=== PATIENT | male | born 1955 | race Caucasian/White ===

== ENCOUNTER → 2021-01-19 11:54 | Outpatient (REF) | payer MEDICARE, SELFPAY | LOC: ANHLAB 11:54 | PROVIDERS: PCP Family Medicine; Visit Provider Nurse Practitioner | DX: D49.2 Neoplasm of unspecified behavior of bone, soft tissue, and skin (principal); L85.9 Epidermal thickening, unspecified; L57.0 Actinic keratosis | CPT/HCPCS: 88305 ==

== ENCOUNTER → 2022-01-11 11:41 | Outpatient (REF) | payer MEDICARE, SELFPAY | LOC: ANHLAB 11:41 | PROVIDERS: PCP Family Medicine; Visit Provider Nurse Practitioner | DX: L57.0 Actinic keratosis (principal); L81.4 Other melanin hyperpigmentation | CPT/HCPCS: 88305 ==

== ENCOUNTER → 2022-02-28 11:07 | Outpatient (REF) | payer MEDICARE, SELFPAY | LOC: ANHLAB 11:07 | PROVIDERS: PCP Family Medicine; Visit Provider Nurse Practitioner | DX: C44.329 Squamous cell carcinoma of skin of other parts of face (principal) | CPT/HCPCS: 88305; 88331 ==

== ENCOUNTER 2023-07-25 00:54 | Day surgery (SDC) | payer MEDICARE, SELFPAY ==
[2023-07-12 14:31] VITALS: BMI 21.4
[2023-07-25 10:00] VITALS: BP 130/77; PULSE 90; RESP 18; TEMP 36.3; O2SAT 100; BMI 21.1
[2023-07-25] MEDS: LACTATED RINGERS 1,000 ML 150 ML IV CONT (10:23)
--- NOTE | 2023-07-25 10:32 | PM.HPGS ---
History of Present Illness History of Present Illness Consent: Risks, benefits, and alternatives have been discussed and questions answered. Patient agrees to proceed with procedure. Chief complaint: hx of colon polyps Narrative: Chun Benson is a 68 year old male presents for screening colonoscopy. Patient's current weight appetite and bowel movements are normal. Patient denies abdominal pain. He has had no bleeding. Family history is significant both mother and father and several additional relatives have all had colon cancer. Patient himself was found to have adenomatous colon polyp at the time colonoscopy in 2017. Patient presents today for surveillance screening colonoscopy. Review of Systems Review of Systems: Review of systems noncontributory. [facility] Past Medical History Medical History Benign prostatic hyperplasia with weak urinary stream Erectile dysfunction Mixed hyperlipidemia Personal history of squamous cell carcinoma of skin Surgical History Surgical History History of vasectomy Family History Family History Father Hypertension Carcinoma of colon Family history of malignant neoplasm of urinary bladder Mother Carcinoma of colon Social History Social History (Updated 05/08/23 @ 15:18 by Kate Davis [facility]) Smoking status: Former smoker Smokeless tobacco user: chewing tobacco Second hand tobacco smoke exposure: No Smoking end date: 09/25/88 Alcohol intake: current Substance use: never Substance use type: does not use Lack of Transportation: No Lack of Food: Never True Current Housing: I Have Housing Concerned About Future Housing: No Difficulty Paying Gas/Electric Bills: No Difficulty Paying for Meds: No Currently Unemployed: No Education: Master's Degree or Higher Difficulty w/ Childcare or Family Care: No Living arrangements: with family Gender identity (if verbalized by the patient): Male Sexual Orientation (if Verbalized by the Patient): Straight or Heterosexual Spiritual care concerns: No Agree to blood products: Yes Meds Home Medications and Allergies Home Medications Medication Instructions Recorded Confirmed Type tadalafil 20 mg tablet 20 mg PO DAILY sexual activity #30 10/22/21 07/25/23 Rx tabs Allergies Allergy/AdvReac Type Severity Reaction Status Date / Time erythromycin base Allergy Unknown Unknown Verified 07/25/23 10:10 NSAIDS (Non-Steroidal Allergy Unknown stomach Verified 07/25/23 10:10 Anti-Inflamma problems Vital Signs Vital Signs - 24 hr 07/25/23 10:00 Temperature 97.4 F L Pulse Rate 90 Respiratory Rate 18 Blood Pressure 130/77 Pulse Oximetry 100 Oxygen Delivery Room Air Exam Narrative: Physical exam reveals patient to be alert. Vital signs stable. HEENT exam is unremarkable. Patient is anicteric. Lungs are clear to auscultation and percussion. Heart is without murmur or extra sounds. Abdomen bowel sounds are present soft nontender with no organomegaly. Digital external rectal exam normal. Assessment and Plan Assessment and plan (1) H/O adenomatous polyp of colon: Code(s): Z86.010 - Personal history of colonic polyps Status: Acute Assessment and Plan: Patient found to have adenomatous colon polyp in the past. Most recently 2017 colonoscopy. Plan for surveillance exam at least every 5 years. (2) Family hx of colon cancer: Code(s): Z80.0 - Family history of malignant neoplasm of digestive organs Status: Acute Assessment and Plan: Both mother and father and several additional 5 extended family members have had colon cancer. Plan for surveillance colonoscopy at least every 5 years.
--- NOTE | 2023-07-25 10:51 | WPDANESEPPF ---
Anes - Initial Pre Proc Eval Procedure: Operation Date: 07/25/23 11:30 Proposed Procedures p Colonoscopy - Wilfrido Tolentino MD Date/Time: 07/25/23 10:51 Surgeon: Wilfrido Tolentino MD Pre Op Diagnosis: hx of colon polyps Patient Data Age: 68 Gender: M Height: 1.78 m Weight: 66.8 kg Last Vital Signs Temp 97.4 F L 07/25/23 10:00 Pulse 90 07/25/23 10:00 Resp 18 07/25/23 10:00 BP 130/77 07/25/23 10:00 Pulse Ox 100 07/25/23 10:00 O2 Del Method Room Air 07/25/23 10:00 Allergies Allergy/AdvReac Type Severity Reaction Status Date / Time erythromycin base Allergy Unknown Unknown Verified 07/25/23 10:10 NSAIDS (Non-Steroidal Allergy Unknown stomach Verified 07/25/23 10:10 Anti-Inflamma problems Home Medications Medication Instructions Recorded Confirmed Type tadalafil 20 mg tablet 20 mg PO DAILY sexual activity #30 10/22/21 07/25/23 Rx tabs Patient hx anesthesia problems: none Family hx anesthesia problems: none Results Review: All pre-operative results and documents have been reviewed as part of the pre-operative evaluation. [facility] Past Medical History Medical History Benign prostatic hyperplasia with weak urinary stream Erectile dysfunction Mixed hyperlipidemia Personal history of squamous cell carcinoma of skin Surgical History Surgical History History of vasectomy Family History Family History Father Hypertension Carcinoma of colon Family history of malignant neoplasm of urinary bladder Mother Carcinoma of colon Social History Social History (Updated 05/08/23 @ 15:18 by Kate Davis [facility]) Smoking status: Former smoker Smokeless tobacco user: chewing tobacco Second hand tobacco smoke exposure: No Smoking end date: 09/25/88 Alcohol intake: current Substance use: never Substance use type: does not use Lack of Transportation: No Lack of Food: Never True Current Housing: I Have Housing Concerned About Future Housing: No Difficulty Paying Gas/Electric Bills: No Difficulty Paying for Meds: No Currently Unemployed: No Education: Master's Degree or Higher Difficulty w/ Childcare or Family Care: No Living arrangements: with family Gender identity (if verbalized by the patient): Male Sexual Orientation (if Verbalized by the Patient): Straight or Heterosexual Spiritual care concerns: No Agree to blood products: Yes Anes - Eval Final PreProcedure Day of Procedure 07/25/23 10:51 Patient weight: normal Heart: regular rate and rhythm Lungs: clear to auscultation Airway: Mallampati scale class II Neurological: alert and oriented Last oral intake: >/= 8 hours ASA classification: III Emergent: no Anesthetic plan: proceed Anesthesia type and monitoring: general GIVS and standard monitoring Results Review: All pre-operative results and documents have been reviewed as part of the pre-operative evaluation. Informed Consent: The patient's anesthetic plan and its attendant risks and benefits were discussed with the patient/family/POA. Questions were solicited and answers provided to the satisfaction of the patient/family/POA.
[2023-07-25] MEDS: SIMETHICONE ORAL SUSPENSION 20 MG/0.3 ML 30 ML BOTTLE 0.6 ML IRRIGATION (11:07)
[2023-07-25 11:24] VITALS: BP 85/55; PULSE 73; RESP 18; O2SAT 99
[2023-07-25 11:34] VITALS: BP 109/67; PULSE 73; RESP 17; O2SAT 99
[2023-07-25 11:44] VITALS: BP 104/70; PULSE 72; RESP 18; O2SAT 100
== END 2023-07-25 12:04 | disposition home or self-care (01) ==
PROVIDERS: PCP Family Medicine; Visit Provider Internal Medicine Gastroenterology
PROC: 0DJD8ZZ Inspection of Lower Intestinal Tract, Via Natural or Artificial Opening Endoscopic (ICD-10-PCS; CPT 45378; principal; 2023-07-25 11:30)
DX: Z12.11 Encounter for screening for malignant neoplasm of colon (principal); D12.5 Benign neoplasm of sigmoid colon; K63.5 Polyp of colon; K64.8 Other hemorrhoids; Z80.0 Family history of malignant neoplasm of digestive organs; Z80.52 Family history of malignant neoplasm of bladder; Z87.891 Personal history of nicotine dependence
CPT/HCPCS: G0105; 88305; J2704; J7120

== ENCOUNTER 2024-12-05 08:10 | Outpatient (CLI) | payer MEDICARE, SELFPAY ==
--- NOTE | ~2024-12-05 | MR_ITS ---
EXAMINATION: MR brain/brain stem wo/w con DATE: 12/05/2024 09:00 INDICATION: New daily persistent headache. TECHNIQUE: Magnetic resonance imaging (MRI) of the brain and brainstem was performed without and with 14 mL MultiHance intravenous contrast. COMPARISON: None. FINDINGS: There is no intracranial hemorrhage, acute infarction, or abnormal intracranial mass lesion . There is a punctate focus of increased T2-weighted signal intensity in the right parietal white mat ter which is normal as an isolated finding. The ventricles are normal in size. The orbits are normal. There is mild mucosal thickening in the paranasal sinuses. There is a small right mastoid effusion. IMPRESSION: 1. Normal brain. Reviewed, dictated and finalized at location B. IMPRESSION: 1. Normal brain.
--- OUTSIDE RECORDS SUMMARY | 2024-12-05 08:22 | XMS_ITS | Clinical Summary ---
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 Surgical History Surgery Date Site/Laterality Comments VASECTOMY SQUAMOUS CELL CARCINOMA EXCISION Medical History Medical History Date Comments Hyperlipidemia Cancer (HCC) Enlarged prostate Family History Medical History Relation Name Comments Colon cancer Father Colon cancer Mother Relation Name Status Comments Father (Age 90) Mother (Age 91) Social History Tobacco Use Types Packs/Day Years Used Date Smoking Tobacco: Former Smokeless Tobacco: Former Quit: 1990 [place] 1977 Alcohol Use Standard Drinks/Week Comments Never 0 (1 standard drink = 0.6 oz pur e alcohol) AUDIT-C Answer Date Recorded Frequency of Alcohol Consumption Never 05/30/2019 Average Number of Drinks Not on file 019 Frequency of Binge Drinking Not on file 01/2019 Personal Safety Answer Date Recorded Getting School Help Needed Not on file 12/09 Sex and Gender Information Value Date Recorded Sex Assigned at Not on file Legal Sex Male 3:39 PM CDT Gender Identity Not on file Sexual Orientation Not on file Obstetrics History Last Filed Vital Signs Vital Sign Reading Time Taken Comments Blood Pressure 102/62 05/30/2019 2:59 PM CDT Pulse 71 05/30/2019 2:59 PM CDT Temperature - - Respiratory Rate - - Oxygen Saturation 98% 05/30/2019 2:59 PM CDT Inhaled Oxygen Concentration - - Weight 68.9 kg (152 lb) 05/30/2019 2:59 PM CDT Height 177.8 cm (5' 10 ) 05/30/2019 2:59 PM CDT Body Mass Index 21.81 05/30/2019 2:59 PM CDT Plan of Treatment Not on file Insurance [email or web address] [facility] MEDICARE Care Teams Horse Breaker Relationship Specialty Start Date End Date Lisa Joseph MD [facility] - General 12/13/17
--- OUTSIDE RECORDS SUMMARY | 2024-12-05 08:22 | XMS_ITS | Referral Summary ---
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
[2024-12-05 09:23] LABS: Alanine Aminotransferase 25 U/L (16-63); Albumin Level 3.7 g/dL (3.4-5.0); Alkaline Phosphatase 101 U/L (46-116); Anion Gap 5 mmol/L (4-12); Aspartate Amino Transferase 13 U/L (15-37); Bilirubin,Total 0.9 mg/dL (0.00-1.00); Blood Urea Nitrogen 25 mg/dL (7-18); Calcium 9.1 mg/dL (8.5-10.1); Carbon Dioxide 31 mmol/L (21-32); Chloride 105 mmol/L (98-108); Cholesterol 175 mg/dL (0-200); Estimated Glomerular Filt Rate > 60; Glucose 91 mg/dL (70-99); HDL Direct 63 mg/dL (40-60); LDL Cholesterol Calculated 102 mg/dL (<130); Osmolality Calculated 296 mOsm/kg (285-295); Potassium 4.7 mmol/L (3.5-5.1); Sodium 141 mmol/L (136-145); Total Protein 7.1 g/dL (6.4-8.2); Triglycerides 52 mg/dL (0-150)
== END 2024-12-05 08:11 | disposition home or self-care (01) ==
LOC: CHSIMG 08:11
PROVIDERS: PCP Family Medicine; Visit Provider Family Medicine
DX: G44.52 New daily persistent headache (NDPH) (principal); E78.2 Mixed hyperlipidemia
CPT/HCPCS: 36415; 70553; 80053; 80061; A9577